=== PATIENT | female | born 1975 | race Caucasian/White ===

== ENCOUNTER 2020-01-08 12:25 | Outpatient (REF) | payer SELFPAY ==
[2020-01-11 18:14] LABS: SARS-CoV-2 RNA Undetected (Undetected); SARS-CoV-2 Specimen Source Nasopharynx
== END 2020-01-08 12:45 ==
LOC: LBN 12:25
PROVIDERS: Visit Provider Nurse Practitioner Adult Health
DX: Z11.59 Encounter for screening for other viral diseases (principal)
CPT/HCPCS: U0003

== ENCOUNTER 2020-02-08 07:13 | Emergency (ER) | payer BC, SELFPAY ==
[2020-02-08 07:51] VITALS: BP 146/85; PULSE 96; RESP 18; TEMP 36.7; O2SAT 100
--- NOTE | 2020-02-08 08:00 | DI.CT_ITS ---
EXAM: CT ABDOMEN PELVIS W CLINICAL HISTORY: Umbilical hernia, abd bloating TECHNIQUE: Imaging Protocol: Axial computed tomography images with coronal and sagittal reformatted images were created and reviewed CONTRAST MATERIAL: Intravenous: Omnipaque 350 Contrast volume:100 mL Oral: No COMPARISON: No exams were available for comparison FINDINGS: ABDOMEN: Lung Bases: Dependent atelectasis. Liver: Normal density. No measurable mass. Portal, Superior Mesenteric, and Splenic Veins: Unremarkable. Gallbladder and Biliary Tract: No radiodense calculus or dilation. Pancreas: Normal density, no abnormal calcifications or inflammatory process. Spleen: Normal. Adrenals: Bilateral hypodense adrenal nodules likely reflecting adenomas. Kidneys: Normal size, contour and axis. No radiodense stones or obstructive uropathy. No masses seen. Abdominal Aorta: Abdominal portion non-dilated. Minimal atherosclerosis. Bowel: No obstruction or bowel wall thickening. No evidence of acute appendicitis. Peritoneal Cavity: No ascites, collection or mesenteric inflammatory response. Lymph Nodes: Within normal limits. Bones: Unremarkable. Soft Tissues: There is a fat containing small supraumbilical midline hernia. It lies 2.9 cm above th e umbilicus. PELVIS: Bladder: Symmetric distention, no gross wall thickening. Reproductive Organs: Ovarian cysts. The cyst on the right measures 2.3 cm. The cyst on the left bernice sures 2.4 cm. Lymph Nodes: Within normal limits. Bones: Within normal limits. IMPRESSION: 1. Small unremarkable fat containing supraumbilical hernia. 2. No evidence of an umbilical hernia. 3. No acute abdominal or pelvic process. 4. The findings were discussed with the emergency department on the date of the examination. RADIATION DOSE DELIVERED: 514.41mGy.cm Total DLP DATA REPOSITORY: All CT scans at this facility are submitted to the National Radiology Data Registry (NRDR) Dose Index Registry (DIR) with the [employer] ([employer]). RADIATION OPTIMIZATION: All CT scans at this facility use at least one of these dose optimization te chniques: automated exposure control; mA and/or kV adjustment per patient size (includes targeted exa ms where dose is matched to clinical indication); or iterative reconstruction.
[2020-02-08 08:04] LABS: Bilirubin Negative (Negative); Blood Trace-intact (Negative); Clarity Clear (Clear); Glucose Negative (Negative); Ketones Negative (Negative); Leukocyte Esterase Negative (Negative); Nitrite Negative (Negative); Specific Gravity 1.015 (1.005-1.025); Urobilinogen 0.2 EU/dL (Up TO 0.2)
--- NOTE | 2020-02-08 08:12 | W.ED.GENAD ---
Discharge Plan Disposition Patient Disposition: HOME Condition: Stable Discharge Details Chief Complaint: Abd Prob Clinical Impression: Umbilical hernia without obstruction and without gangrene, Gas bloat syndrome Primary Care Provider: Unknown,Unknown ED Provider: Rula Khan Home Meds and New Rx's Prescriptions: Continued lamotrigine 150 mg Tablet 75 mg PO QAM RF: 0 lamotrigine 150 mg Tablet 150 mg PO HS RF: 0 alprazolam 0.5 mg Tablet 0.5 mg PO BID PRNRF: 0 trazodone 150 mg Tablet 150 mg PO DAILY RF: 0 duloxetine 30 mg Capsule,Delayed Release(Dr/Ec) 30 mg PO DAILY RF: 0 levothyroxine 100 mcg Capsule 100 mcg PO DAILY RF: 0 Discharge Instructions Instructions: Umbilical Hernia (ED), Abdominal Pain (ED) Additional Instructions: At this time the umbilical hernia is just very small and fat-containing. No bowel involvement. He did have some dilated loops of bowel noted on the CT exam. This appears to be related to gas. No other abnormalities noted on CT. Try Gas-X or simethicone which he can get [id number]. He can take tablet up to 4 times a day as needed. Follow up with primary care provider in 3-5 days. Return to ED sooner if any worsening or concerns. Increase oral fluids. Please take Tylenol or Ibuprofen with food every 4-6 hours as needed for pain and swelling. We will give you information for general surgery if continued problems with the umbilical hernia. Return for any fever, diarrhea, vomiting or any other concerns. Stand Alone Forms: Work Release Referrals: Sanjana Mcdonald MD [ [facility] STAFF PHYSICIAN] - Medical Decision Making 44-year-old female presents to the ER with generalized abdominal bloating and periumbilical tenderness which has been present for approximately 1 week. She states that the pain got worse last night describes it as a burning and radiating into her back. Associated symptoms include nausea and chills. She did have a normal bowel movement yesterday morning but upon presentation she reports unable to pass gas or belch. At this time she rates her pain 2 out of 10 describes it as dull burning. She denies any fever, diarrhea, vomiting, dysuria. She did recently have a UTI which she took 4 days of Bactrim. 0908: Patient has a self-reported allergy to shellfish which she reports she had an allergic reaction to shellfish 20 years ago. She does state that she has had CT with IV contrast to rule out appendicitis in the past, she did become nauseous and vomit at that time. Discussed risks and benefits with patient, she does agree to have IV contrast at this time we will premedicate her with 25 mg Benadryl IV push prior to injecting contrast dye. Lab results are largely within normal limits. No leukocytosis, CMP is largely within normal limits, lipase is 79, urinalysis shows trace blood with 5-10 RBCs no leukocytes no nitrites. Spoke with radiologist regarding CT results he reports nothing acute there is a small fat-containing supra umbilical hernia. Patient returned from CT without difficulty no adverse reactions to the IV dye noted. EXAM: CT ABDOMEN PELVIS W CLINICAL HISTORY: Umbilical hernia, abd bloating TECHNIQUE: Imaging Protocol: Axial computed tomography images with coronal and sagittal reformatted images were created and reviewed CONTRAST MATERIAL: Intravenous: Omnipaque 350 Contrast volume:100 mL Oral: No COMPARISON: No exams were available for comparison FINDINGS: ABDOMEN: Lung Bases: Dependent atelectasis. Liver: Normal density. No measurable mass. Portal, Superior Mesenteric, and Splenic Veins: Unremarkable. Gallbladder and Biliary Tract: No radiodense calculus or dilation. Pancreas: Normal density, no abnormal calcifications or inflammatory process. Spleen: Normal. Adrenals: Bilateral hypodense adrenal nodules likely reflecting adenomas. Kidneys: Normal size, contour and axis. No radiodense stones or obstructive uropathy. No masses seen. Abdominal Aorta: Abdominal portion non-dilated. Minimal atherosclerosis. Bowel: No obstruction or bowel wall thickening. No evidence of acute appendicitis. Peritoneal Cavity: No ascites, collection or mesenteric inflammatory response. Lymph Nodes: Within normal limits. Bones: Unremarkable. Soft Tissues: There is a fat containing small supraumbilical midline hernia. It lies 2.9 cm above the umbilicus. PELVIS: Bladder: Symmetric distention, no gross wall thickening. Reproductive Organs: Ovarian cysts. The cyst on the right measures 2.3 cm. The cyst on the left measures 2.4 cm. Lymph Nodes: Within normal limits. Bones: Within normal limits. IMPRESSION: 1. Small unremarkable fat containing supraumbilical hernia. 2. No evidence of an umbilical hernia. 3. No acute abdominal or pelvic process. 4. The findings were discussed with the emergency department on the date of the examination. Patient given simethicone p.o. here in department, discussed CT results patient verbalized understanding. Plan is to have patient follow-up with general surgery as needed regarding hernia. Given strict return instructions, verbalized understanding. This text was generated using [employer] system, please disregard any oddities of phrase or misspellings. HPI General Mode of arrival: ambulatory. Date/Time Provider Initiated Documentation: 02/08/20 08:04. Limitations to Documentation: no limitations. Information obtained by: patient. HPI Narrative: 44-year-old female presents to the ER with generalized abdominal bloating and periumbilical tenderness which has been present for approximately 1 week. She states that the pain got worse last night describes it as a burning and radiating into her back. Associated symptoms include nausea and chills. She did have a normal bowel movement yesterday morning but upon presentation she reports unable to pass gas or belch. At this time she rates her pain 2 out of 10 describes it as dull burning. She denies any fever, diarrhea, vomiting, dysuria. She did recently have a UTI which she took 4 days of Bactrim. Related Data Home Medications Medication Instructions Recorded Confirmed alprazolam 0.5 mg PO BID PRN 02/08/20 02/08/20 duloxetine 30 mg PO DAILY 02/08/20 02/08/20 lamotrigine 75 mg PO QAM 02/08/20 02/08/20 lamotrigine 150 mg PO HS 02/08/20 02/08/20 levothyroxine 100 mcg PO DAILY 02/08/20 02/08/20 trazodone 150 mg PO DAILY 02/08/20 02/08/20 Allergies Allergy/AdvReac Type Severity Reaction Status Date / Time acetaminophen Allergy Hives Unverified 02/08/20 08:01 [From Lorcet (hydrocodone)] hydrocodone Allergy Hives Unverified 02/08/20 08:01 [From Lorcet (hydrocodone)] latex Allergy Swelling/Ed Unverified 02/08/20 08:01 jordyn shellfish derived Allergy Anaphylaxsi Unverified 02/08/20 08:01 s ciprofloxacin AdvReac Muscle Unverified 02/08/20 08:01 aches General Stated Complaint: Abd Prob FLORENCIO: 3 Review of Systems Narrative: Constitutional: Negative for weight loss, alert and oriented, well groomed, normal body habitus, appears comfortable. HEENT: Denies trauma, headaches, blurry vision, nasal discharge, sore throat, trouble swallowing. Chest: Denies chest pain, palpitations, irregular rhythm, hypertension. Respiratory: Denies Shortness of breath, cough, hemoptysis. GI: Denies vomiting, diarrhea, constipation. Positive abdominal pain with an umbilical hernia, positive nausea. : Denies dysuria, hematuria, flank pain, rectal bleeding. Neuro: Denies dizziness, blurry vision, weakness, syncope, headache or facial numbness. Hematologic: Denies easy bruising, intolerance to heat or cold, hair loss. [facility] Social History Smoking/Tobacco Use Status: Current every day Alcohol Intake: never Drug use: Never Substance use type: does not use Do you feel safe at home: Yes Do you feel safe in your relationship?: Yes Exam Narrative Exam Narrative: Constitutional: Alert and oriented x3. Appears stated age. Normal body habitus. Head: Normocephalic, no trauma. Eyes: Pupils PERRLA, Red reflex noted, EOM's intact. Eyelids symmetrical without lesions, discharge, or swelling. ENT: Bilateral TM's WNL, External ear normal to inspection, no mastoid TTP, swelling, or erythema, Nasal turbinates WNL, no nasal discharge. Normal dentition, Posterior pharynx WNL, no exudate. Chest: RRR, Normal S1, S2, distal pulses intact. Resp: Lungs clear to auscultation bilaterally, no wheezes, rales, or rhonchi. GI: Abdominal bloating noted, small periumbilical hernia noted just superior to the umbilicus. Tender to palpation, nonreproducible. Right lower quadrant tenderness with palpation as well. Musculoskeletal: Normal gait, 5/5 strength to all four extremities. Skin: No suspicious rashes or lesions. Capillary refill less than 2 sec. Neurologic: Cranial nerves II-XII intact. Alert and oriented x 3. DTR's intact. Hematologic/Lymphatic: No ecchymosis, no lymphadenopathy. Course Vital Signs Vital signs: Vital Signs Temperature 36.7 C 02/08/20 07:51 Pulse 96 H 02/08/20 07:51 Respiratory Rate 18 02/08/20 07:51 Blood Pressure 146/85 H 02/08/20 07:51 Pulse Oximetry 100 02/08/20 07:51 Temperature 36.7 C 02/08/20 07:51 Temperature Source Temporal Artery Scan 02/08/20 07:51 Pulse 96 H 02/08/20 07:51 Respiratory Rate 18 02/08/20 07:51 Respiratory Effort Non-Labored 02/08/20 07:58 Blood Pressure 146/85 H 02/08/20 07:51 Blood Pressure Position Supine 02/08/20 07:51 Pulse Oximetry 100 02/08/20 07:51 Oxygen Delivery Method Room Air 02/08/20 07:51 Oxygen Flow Rate 0 02/08/20 07:51 Pain Level 2 02/08/20 08:04 Lab/Test Results Lab/Test Results: POC Urine Test Start: 02/08/20 07:51 Freq: Status: Complete Protocol: Document 02/08/20 07:51 KW (Rec: 02/08/20 07:51 KW [id number]) Test(Urine)-POC POC- Test(urine) Negative POC- Test(urine) Negative
[2020-02-08 08:15] LABS: WBC 0-2 HPF (0-5)
[2020-02-08 08:16] LABS: Bacteria Negative HPF (Negative); C & S Indicated? No; Casts Negative LPF (Negative); Crystals Negative HPF (Negative); Epithelial Cells Rare HPF (Negative); Mucus Negative (Negative)
[2020-02-08] MEDS: Normal Saline 1,000 ML 1000 ML IV (08:45)
[2020-02-08] MEDS: Ondansetron 4 MG/2 ML VIAL IVP (08:51)
[2020-02-08 08:53] LABS: Abs Immature Grans 0.02 10^3/uL (0.0-0.06); Absolute Basophil Count 0.08 10^3/uL (0.0-0.2); Absolute Eosinophil Count 0.16 10^3/uL (0.0-0.7); Absolute Lymphocyte Count 3.24 10^3/uL (1.2-3.4); Absolute Monocyte Count 0.55 10^3/uL (0.1-0.8); Absolute Neutrophil Count 4.45 10^3/uL (1.2-6.7); Basophils % 0.9; Eosinophils % 1.9; HGB 13.3 g/dL (11.2-15.7); Immature Grans % 0.2; Lymphocytes % 38.1; MCHC 33.3 % (32.0-36.0); MCV 93.2 fL (80-95); MPV 8.8 fL (8.0-11.0); Monocytes % 6.5; Neutrophils % 52.4; Nucleated RBC 0 %; Platelet Count 366 10^3/uL (130-400); RBC 4.29 10^6/uL (3.93-5.22); RDW 13.3 % (11.7-14.6); RDW-SD 45.4 fL
[2020-02-08 09:03] LABS: ALT 32 U/L (14-59); AST 18 U/L (15-37); Alkaline Phosphatase 70 U/L (46-116); Anion Gap 9.4 mmol/L (3-11); BUN 6 mg/dL (7-18); Bilirubin, Total 0.3 mg/dL (0.2-1.0); CO2 27.6 mmol/L (21.0-32.0); CREATININE 0.86 mg/dL (0.55-1.02); Calcium 9.1 mg/dL (8.5-10.1); Chloride 102 mmol/L (98-107); Glucose 84 mg/dL (74-106); Lipase 79 U/L (73-393); Potassium 3.5 mmol/L (3.5-5.1); Sodium 139 mmol/L (136-145); Total Protein 7.3 g/dL (6.4-8.2)
[2020-02-08] MEDS: diphenhydrAMINE 50 MG/ML VIAL 25 MG IVP (09:28)
[2020-02-08] MEDS: Omnipaque 350 MG/ML 100 ML BTL IV (10:09)
[2020-02-08] MEDS: Simethicone 80 MG CHEW 40 MG PO (10:52)
[2020-02-08 10:56] VITALS: BP 101/44; PULSE 74; RESP 16; TEMP 36.7; O2SAT 99
== END 2020-02-08 10:56 | disposition home or self-care (01) ==
PROVIDERS: Physician Assistant; Emergency Provider Registered Nurse Emergency
DX: K42.9 Umbilical hernia without obstruction or gangrene (principal); R14.0 Abdominal distension (gaseous); R11.0 Nausea
CPT/HCPCS: 36415; 80053; 81025; 83690; 96361; 96375; 99285; 74177; 81003; 81015; 85025; 99284; J1200; J2405; J3490